=== PATIENT | female | born 2005 | race Caucasian/White ===

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

== ENCOUNTER 2024-06-04 23:29 | Emergency (ER) | payer BC ==
[~2024-06-04] VITALS: Ht 167.6 cm; Wt 52.2 kg
[~2024-06-04 23:29] MED LIST: BUSPIRONE HCL5 GM MC; SEROQUEL XR1 EACH PO; TRAZODONE HCL150 MG PO; ZOLOFT25 MG PO; ZOLOFT50 MG PO
[2024-06-05 00:41] LABS: HEMATOCRIT 36.3 % (36.0-45.00); MEAN CORPUSCULAR HEMOGLOBIN 24.5 pg (27.00-32.0); MEAN CORPUSCULAR HGB CONC 33.1 g/dl (32.0-36.0); PLATELET COUNT 313 K/uL (150-450); RED BLOOD COUNT 4.91 M/uL (4.00-6.00); RED CELL DISTRIBUTION WIDTH 15.1 % (11.5-14.5)
[2024-06-05 00:49] LABS: ALBUMIN 3.4 gm/dL (3.4-5.0); BILIRUBIN TOTAL 0.29 mg/dL (0.3-1.2); CALCIUM 8.9 mg/dL (8.5-10.1); CREATININE SERUM 0.7 mg/dL (0.55-1.02); GFR 106.68; GLOBULINA 3.8 G/DL (2.4-3.5); POTASSIUM 3.38 mEq/L (3.5-5.1); TOTAL PROTEIN 7.2 gm/dL (6.4-8.2)
== END 2024-06-05 02:37 | disposition home or self-care (01) ==
LOC: ER 23:29 → EMR PED 23:31 → ER 23:31 → EMR PED 06-05 02:37
DX: R21 Rash and other nonspecific skin eruption (principal); Z88.6 Allergy status to analgesic agent; Z91.013 Allergy to seafood